=== PATIENT | female | born 1980 | race Caucasian/White ===

== ENCOUNTER 2021-07-20 12:08 | Emergency (ER) | payer MEDICAID ==
[~2021-07-20] VITALS: Ht 170.2 cm; Wt 103.9 kg
[2021-07-20 12:12] VITALS: BP 148/77
--- NOTE | 2021-07-20 12:16 | NUR ---
Wheel chair to Chair B.
--- NOTE | 2021-07-20 12:22 | NUR ---
41 Y/O FEMALE C/O RIGHT FOOT PAIN 01/01 DESCRIBES ACHING [id number]. DENIES TRAUMA/INJURY. PT REPORTS PAIN IS WORST WITH AMBULATION AND WORSENED WHILE AT WORK. DENIES FEVER/CHILLS. DENIES N/V. PMHx: HTN NKA
[2021-07-20] MEDS ORDERED: KETOROLAC 60 MG/2 ML VIAL IM ONE (12:45)
--- NOTE | 2021-07-20 13:30 | NUR ---
PT SENT TO XRAY VIA W/C
--- NOTE | 2021-07-20 13:37 | NUR ---
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
[2021-07-20 14:25] VITALS: BP 148/77
--- NOTE | 2021-07-20 14:25 | NUR ---
Patient discharged with v/s stable. Written and verbal after care instructions given and explained. Patient verbalized understanding. Ambulatory with steady gait with crutches. All questions addressed prior to discharge. Advised to follow up with PMD.
== END 2021-07-20 14:25 | disposition home or self-care (01) ==
LOC: MED 12:08
DX: M79.671 Pain in right foot (principal); I10 Essential (primary) hypertension
CPT/HCPCS: 73630; 96372; 99283; J1885

== ENCOUNTER 2021-12-11 16:43 | Emergency (ER) | payer MEDICAID ==
[~2021-12-11] VITALS: Ht 162.6 cm; Wt 103.4 kg
[2021-12-11 16:49] VITALS: BP 149/80
--- NOTE | 2021-12-11 17:00 | NUR ---
C/O 810 HEADACHE, NAUSEA X 2 DAYS. PMH:DENIES
--- NOTE | 2021-12-11 17:35 | NUR ---
GALILEA NEAL EVALUATING PT AT [facility].
[2021-12-11] MEDS ORDERED: KETOROLAC 30 MG/ML VIAL ONE (17:37)
[2021-12-11] MEDS ORDERED: NAPR-1704 PO (17:38)
[2021-12-11] MEDS ORDERED: LORA1T1237 PO (17:38)
[2021-12-11] MEDS ORDERED: KETOROLAC 30 MG/ML VIAL IM ONE (17:40)
[2021-12-11 18:00] VITALS: BP 149/76
--- NOTE | 2021-12-11 18:00 | NUR ---
Patient discharged with v/s stable. Written and verbal after care instructions given and explained. Patient alert, oriented and verbalized understanding of instructions. Ambulatory with steady gait. All questions addressed prior to discharge. ID band removed. Patient advised to follow up with PMD. Rx of NAPROSYN& CLARITIN given. Patient educated on indication of medication including possible reaction and side effects. Opportunity to ask questions provided and answered.
== END 2021-12-11 18:00 | disposition home or self-care (01) ==
LOC: MED 16:43
DX: G44.209 Tension-type headache, unspecified, not intractable (principal); H65.93 Unspecified nonsuppurative otitis media, bilateral; I10 Essential (primary) hypertension
CPT/HCPCS: 96372; 99283; J1885

== ENCOUNTER 2023-01-18 23:07 | Emergency (ER) | payer MEDICAID ==
[~2023-01-18] VITALS: Ht 165.1 cm; Wt 90.7 kg
[~2023-01-18 23:07] MED LIST: LORA1T1237 PO; NAPR-1704 PO
[2023-01-18 23:23] VITALS: BP 132/74; PULSE 99; RESP 24; TEMP 98.4; O2SAT 99
[2023-01-19] MEDS ORDERED: LIDOCAINE 1% 500 MG/ 50 ML VIAL INJ ONE (03:35)
[2023-01-19] MEDS ORDERED: LIDOCAINE MPF 1% 5 ML ONE (03:36)
[2023-01-19] MEDS ORDERED: CEPH-588 PO (04:19)
[2023-01-19] MEDS ORDERED: IBUP-2213 PO (04:19)
[2023-01-19] MEDS ORDERED: HYDR-5191 PO (04:19)
[2023-01-19 04:28] VITALS: BP 132/74; PULSE 99; RESP 24; TEMP 98.4; O2SAT 99
== END 2023-01-19 04:28 | disposition home or self-care (01) ==
LOC: MED 23:07
DX: N76.4 Abscess of vulva (principal); Z79.899 Other long term (current) drug therapy
CPT/HCPCS: 56405; 81002; 81025; 99284; J2001

== ENCOUNTER 2023-02-15 23:25 | Emergency (ER) | payer MEDICAID ==
[~2023-02-15] VITALS: Ht 167.6 cm; Wt 99.3 kg
[~2023-02-15 23:25] MED LIST changes: +CEPH-588 PO; +HYDR-5191 PO; +IBUP-2213 PO
[2023-02-15 23:32] VITALS: BP 143/87; PULSE 59; RESP 16; TEMP 97; O2SAT 100
[2023-02-16 00:19] VITALS: O2SAT 97
[2023-02-16] MEDS ORDERED: IBUP-2213 PO (01:03)
[2023-02-16] MEDS ORDERED: CYCL-711 PO (01:03)
[2023-02-16 01:23] LABS: APPEARANCE,URINE CLEAR (CLEAR); BILIRUBIN,URINE NEGATIVE (NEGATIVE); BLOOD, URINE TRACE-I (NEGATIVE); COLOR,URINE YELLOW (YELLOW); LEUKOCYTE ESTERASE ,URINE NEGATIVE (NEGATIVE); NITRITE, URINE NEGATIVE (NEGATIVE); PROTEIN,URINE NEGATIVE (NEGATIVE); UGLUCOSE NEGATIVE (NEGATIVE); UROBILINOGEN,URINE 0.2 EU/dL (0.2 - 1)
[2023-02-16 01:29] LABS: BACTERIA,URINE FEW /HPF (None Seen); MUCUS,URINE 1+ /LPF (None Seen); SQUAMOUS EPITHELIAL CELL,UR 0-3 (FEW) /LPF (0-3 (FEW)); WBC,URINE 0-5 /HPF (0-5)
[2023-02-16 01:41] VITALS: BP 138/72; PULSE 61; RESP 16; TEMP 97; O2SAT 98
== END 2023-02-16 01:41 | disposition home or self-care (01) ==
LOC: MED 23:25
DX: M79.10 Myalgia, unspecified site (principal); R11.0 Nausea; N76.4 Abscess of vulva; Z79.899 Other long term (current) drug therapy
CPT/HCPCS: 81001; 81025; 99284